=== PATIENT | male | born 1990 | race Caucasian/White ===

== ENCOUNTER 2018-06-02 14:32 | Emergency (ER) | payer OTHER ==
[~2018-06-02] VITALS: Ht 172.7 cm; Wt 83.9 kg
[~2018-06-02 14:32] MED LIST: CYMBALTA20 MG; NORFLEX100MG
== END 2018-06-02 17:51 | disposition home or self-care (01) ==
LOC: ER 14:32
DX: B34.9 Viral infection, unspecified (principal)